=== PATIENT | male | born 1995 | race Caucasian/White ===

== ENCOUNTER 2017-12-20 00:07 | Emergency (ER) | payer OTHER ==
[~2017-12-20] VITALS: Ht 182.9 cm; Wt 65.0 kg
[2017-12-20 00:10] VITALS: BP 144/75
[2017-12-20] MEDS ORDERED: LIDOCAINE-MPF 2%, 2ML ONE (00:16)
[2017-12-20] MEDS ORDERED: DIPH,PERTUSS(ACELL),TET VAC/PF 0.5 ML IM-VACC ONE ×3 (00:30→00:40)
== END 2017-12-20 00:57 | disposition home or self-care (01) ==
LOC: ED 00:48
DX: S01.01XA Laceration without foreign body of scalp, initial encounter (principal); S01.81XA Laceration without foreign body of other part of head, initial encounter; Y04.8XXA Assault by other bodily force, initial encounter; Y93.89 Activity, other specified; Y99.8 Other external cause status; Y92.410 Unspecified street and highway as the place of occurrence of the external cause
CPT/HCPCS: 12031; 12051; 90715

== ENCOUNTER 2017-12-27 16:41 | Emergency (ER) | payer OTHER ==
[~2017-12-27] VITALS: Ht 182.9 cm; Wt 65.8 kg
[2017-12-27 16:45] VITALS: BP 131/79
== END 2017-12-27 17:13 | disposition home or self-care (01) ==
LOC: ED 17:04
DX: S01.91XD Laceration without foreign body of unspecified part of head, subsequent encounter (principal); X58.XXXD Exposure to other specified factors, subsequent encounter
CPT/HCPCS: 99281